=== PATIENT | female | born 1985 | race Caucasian/White ===

== ENCOUNTER 2016-10-10 03:05 | Emergency (ER) | payer BC, OTHER ==
[2016-10-10] MEDS ORDERED: TORAdol 30 mg Injection IV ONE (03:23)
[2016-10-10] MEDS ORDERED: Zofran 4 MG/2 ML VIAL IV ONE (03:23)
[2016-10-10] MEDS ORDERED: Sodium Chloride 0.9% 1000 ML 1,000 ML ONE (03:24)
[2016-10-10] MEDS ORDERED: Sodium Chloride 0.9% 1000 ML 1,000 ML IV SCH (03:30)
--- NOTE | 2016-10-10 03:31 | ERPHSYRPT ---
- History of Present Illness Time Seen by Provider: 10/10/16 03:10 Historian: patient Exam Limitations: clinical condition Patient Subjective Stated Complaint: Pt sts rt lower back pain with rt flank pain and rt chest/upper abd discomfort that woke her up from a sleep. Rates pain 6/10. Also sts nausea. Denies symptoms. Sts does not feel like prior kidney stones. Describes as sharp. Triage Nursing Assessment: Pt alert, oriented, answers questions appropriately. Ambulatory to tx room holding rt flank. Steady gait noted. ABD tender right lower quadrant. Physician History: PATIENT COMPLAINS OF SHARP PAINS BELOW RIGHT BREAST SINCE 11AM, SEVERE PAIN WHICH RADIATES TO BACK. ALSO HAS RIGHT FLANK PAIN WHICH RADIATES TO LOWER ABDOMEN. DENIE NAUSEA, EMESIS OR DIARRHEA. HAS HAD PREVIOUS CHOLECYSTECYOMY, APPENDECTOMY AND TUBAL LIGATION. Timing/Duration: today Activities at Onset: none Location: other (RIGHT SIDE OF CHEST BELOW BREAST) Chest Pain Radiation: abdomen Severity of Pain-Max: moderate Severity of Pain-Current: moderate Associated Symptoms: denies symptoms Prior Chest Pain/Cardiac Workup: no prior chest pain Nitro Today/Relief: no nitro taken today Aspirin Treatment Today: no aspirin today Allergies/Adverse Reactions: IV dye Adverse Reaction (Uncoded 10/10/16 03:10) Vomiting Home Medications: Linagliptin [Tradjenta] 5 mg PO DAILY 10/10/16 [History] Metoprolol Tartrate 25 mg PO DAILY 10/10/16 [History] Paroxetine HCl [Paxil] 20 mg PO DAILY 10/10/16 [History] Hx Influenza Vaccination/Date Given: Yes (september 2013) Hx Pneumococcal Vaccination/Date Given: No Immunizations Up to Date: Yes - Review of Systems Constitutional: No Fever, No Chills Eyes: No Symptoms Ears, Nose, & Throat: No Symptoms Respiratory: No Symptoms, No Cough, No Dyspnea Cardiac: No Chest Pain, No Edema, No Syncope Abdominal/Gastrointestinal: No Abdominal Pain, No Nausea, No Vomiting, No Diarrhea Genitourinary Symptoms: No Dysuria Musculoskeletal: No Back Pain, No Neck Pain Skin: No Rash Neurological: No Dizziness, No Focal Weakness, No Sensory Changes Psychological: No Symptoms Endocrine: No Symptoms All Other Systems: Reviewed and Negative - Past Medical History Pertinent Past Medical History: Yes Neurological History: No Pertinent History ENT History: No Pertinent History Cardiac History: No Pertinent History Respiratory History: Bronchitis Endocrine Medical History: No Pertinent History Musculoskeletal History: No Pertinent History GI Medical History: Gallbladder Disease History: No Pertinent History Psycho-Social History: Anxiety Female Reproductive Disorders: Other - Past Surgical History Past Surgical History: Yes Neuro Surgical History: No Pertinent History Cardiac: No Pertinent History Respiratory: No Pertinent History Gastrointestinal: Appendectomy, Cholecystectomy Genitourinary: No Pertinent History Musculoskeletal: No Pertinent History Female Surgical History: Other Other Surgical History: pt states abnormal cervical cells, frozen and scraped - Social History Smoking Status: Never smoker How long have you smoked: 10 yrs Exposure to second hand smoke: No Drug Use: none Patient Lives Alone: No - Female History Hx Last Menstrual Period: ablation 02/04 - Nursing Vital Signs Nursing Vital Signs: Initial Vital Signs Temperature 97.9 F 10/10/16 03:12 Pulse Rate 97 H 10/10/16 03:12 Respiratory Rate 24 10/10/16 03:12 Blood Pressure 157/99 10/10/16 03:12 O2 Sat by Pulse Oximetry 97 10/10/16 03:12 Pain Scale Pain Intensity 6 - Physical Exam General Appearance: mild distress Eye Exam: PERRL/EOMI, eyes nml inspection Ears, Nose, Throat Exam: normal ENT inspection, moist mucous membranes Neck Exam: normal inspection, non-tender, supple, full range of motion Respiratory Exam: normal breath sounds, chest tenderness (MARKED TENDERNESS RIGHT ANTEROLATERAL CHEST WALL 5TH TO 6TH ICS, NO CREPITUS) Cardiovascular Exam: regular rate/rhythm, normal heart sounds Gastrointestinal/Abdomen Exam: soft, normal bowel sounds, tenderness (RIGHT LOWER AND SUPRAPUBIC TENDERNESS) Back Exam: normal inspection, normal range of motion Extremity Exam: normal inspection Neurologic Exam: alert, oriented x 3 SpO2 Interpretation: normal SpO2: 97 Oxygen Delivery: Room Air - Course EKG Interpreted by Me: RATE, Sinus Rhythm, NORMAL AXIS - Radiology Exams Chest X-ray Interpretation: Interpreted by me, Negative, No Infiltrates - CT Exams Abdomen/Pelvis CT Interpretation: Tele-radiologist Report (NO KIDNEY STONES, POST APPENDECTOMY , THERE IS A RIGHT OVARIAN CYST 2.9CM, NO BOWEL OBSTRUCTION, FREE AIR OR FREE FLUID) Ordered Tests: Active Orders 24 hr Category Date Time Status Unloader Operator STAT Care 10/10/16 03:20 Active EKG-ER Only STAT Care 10/10/16 03:20 Active EKG-ER Only STAT Care 10/10/16 03:22 Active IV Insertion STAT Care 10/10/16 03:20 Active Oxygen-ED Only NASAL CANNULA 2 lpm Care 10/10/16 03:20 Active ABDOMEN AND PELVIS W/0 CONTRAS [CT] Stat Exams 10/10/16 04:32 Taken CHEST 2 VIEWS (PA AND LAT) Stat Exams 10/10/16 04:32 Taken CBC W DIFF Stat Lab 10/10/16 03:32 Completed CMP Stat Lab 10/10/16 03:32 Completed D-DIMER QUANTITATION Stat Lab 10/10/16 03:32 Completed PROTIME WITH INR Stat Lab 10/10/16 03:32 Completed TROPONIN Q3H Lab 10/10/16 03:32 Completed TROPONIN Q3H Lab 10/10/16 06:30 Ordered TROPONIN Q3H Lab 10/10/16 09:30 Ordered TROPONIN Q3H Lab 10/10/16 12:30 Ordered TROPONIN Q3H Lab 10/10/16 15:30 Ordered UA W/RFX UR CULTURE Stat Lab 10/10/16 03:30 Completed Medication Summary Generic Name Dose Route Start Last Admin Trade Name Freq PRN Reason Stop Dose Admin Hydromorphone HCl 1 mg 10/10/16 06:18 Hydromorphone 1 Mg/Ml Ampule IV 10/10/16 06:19 STAT ONE Sodium Chloride 1,000 mls @ 250 mls/hr 10/10/16 03:30 10/10/16 03:24 Sodium Chloride 0.9% 1000 Ml IV 11/09/16 03:29 250 mls/hr .Q4H SULEMA Administration Discontinued Medications Generic Name Dose Route Start Last Admin Trade Name Freq PRN Reason Stop Dose Admin Hydromorphone HCl 1 mg 10/10/16 04:02 10/10/16 04:04 Hydromorphone 1 Mg/Ml Ampule IV 10/10/16 04:03 1 mg STAT ONE Administration Hydromorphone HCl Confirm 10/10/16 04:04 Hydromorphone 1 Mg/Ml Ampule Administered 10/10/16 04:05 Dose 1 mg .ROUTE .STK-MED ONE Ketorolac Tromethamine 30 mg 10/10/16 03:23 10/10/16 03:41 Toradol 30 Mg Injection IV 10/10/16 03:24 30 mg STAT ONE Administration Ketorolac Tromethamine Confirm 10/10/16 03:41 Toradol 30 Mg Injection Administered 10/10/16 03:42 Dose 30 mg .ROUTE .STK-MED ONE Ondansetron HCl 4 mg 10/10/16 03:23 10/10/16 03:41 Zofran 4 Mg/2 Ml Vial IV 10/10/16 03:24 4 mg STAT ONE Administration Ondansetron HCl Confirm 10/10/16 03:41 Zofran 4 Mg/2 Ml Vial Administered 10/10/16 03:42 Dose 4 mg .ROUTE .STK-MED ONE Lab/Rad Data: Laboratory Result Diagrams 10/10/16 03:32 10/10/16 03:32 Laboratory Results 10/10/16 10/10/16 10/10/16 Range/Units 03:32 03:32 03:32 WBC (4.0-10.5) K/mm3 RBC (4.1-5.4) M/mm3 Hgb (12.0-16.0) gm/dl Hct (35-47) % MCV (78-100) fl MCH (26-32) pg MCHC (32-36) g/dl RDW (11.5-14.0) % Plt Count (150-450) K/mm3 MPV (6-9.5) fl Gran % (36.0-66.0) % Lymphocytes % (24.0-44.0) % Monocytes % (0.0-12.0) % Eosinophils % (0.00-5.0) % Basophils % (0.0-0.4) % Basophils # (0-0.4) INR 0.99 (0.8-3.0) D-Dimer 412 (0-500) ng/mL Sodium 138 (136-145) mEq/L Potassium 4.5 (3.5-5.1) mEq/L Chloride 102 (98-107) mEq/L Carbon Dioxide 25.6 (21-32) mEq/L Anion Gap 14.6 (5-15) MEQ/L BUN 12 (9-20) mg/dL Creatinine 0.84 (0.55-1.30) mg/dl Estimated GFR > 60 ML/MIN Glucose 170 H (70-110) MG/DL Calcium 9.5 (8.5-10.1) mg/dL Total Bilirubin 0.20 (0.2-1.0) mg/dL AST 14 L (15-37) U/L ALT 29 (12-78) U/L Alkaline Phosphatase 74 (46-116) U/L Troponin I < 0.017 (0.000-0.056) ng/ml Serum Total Protein 7.9 (6.4-8.2) gm/dL Albumin 3.7 (3.4-5.0) g/dL Ur Collection Type Urine Color (YELLOW) Urine Appearance (CLEAR) Urine pH (5-6) Ur Specific [place] (1.005-1.025) Urine Protein (Negative) Urine Ketones (NEGATIVE) Urine Blood (0-5) Rogelio/ul Urine Nitrite (NEGATIVE) Urine Bilirubin (NEGATIVE) Urine Urobilinogen (0-1) mg/dL Ur Leukocyte Esterase (NEGATIVE) Urine Glucose (NEGATIVE) mg/dL Specimen Received 10/10/16 10/10/16 Range/Units 03:32 03:30 WBC 16.2 H (4.0-10.5) K/mm3 RBC 5.24 (4.1-5.4) M/mm3 Hgb 14.7 (12.0-16.0) gm/dl Hct 45.5 (35-47) % MCV 86.8 (78-100) fl MCH 28.1 (26-32) pg MCHC 32.3 (32-36) g/dl RDW 13.6 (11.5-14.0) % Plt Count 426 (150-450) K/mm3 MPV 8.9 (6-9.5) fl Gran % 69.1 H (36.0-66.0) % Lymphocytes % 23.6 L (24.0-44.0) % Monocytes % 5.5 (0.0-12.0) % Eosinophils % 1.4 (0.00-5.0) % Basophils % 0.4 (0.0-0.4) % Basophils # 0.07 (0-0.4) INR (0.8-3.0) D-Dimer (0-500) ng/mL Sodium (136-145) mEq/L Potassium (3.5-5.1) mEq/L Chloride (98-107) mEq/L Carbon Dioxide (21-32) mEq/L Anion Gap (5-15) MEQ/L BUN (9-20) mg/dL Creatinine (0.55-1.30) mg/dl Estimated GFR ML/MIN Glucose (70-110) MG/DL Calcium (8.5-10.1) mg/dL Total Bilirubin (0.2-1.0) mg/dL AST (15-37) U/L ALT (12-78) U/L Alkaline Phosphatase (46-116) U/L Troponin I (0.000-0.056) ng/ml Serum Total Protein (6.4-8.2) gm/dL Albumin (3.4-5.0) g/dL Ur Collection Type CLEAN CATCH Urine Color YELLOW (YELLOW) Urine Appearance CLEAR (CLEAR) Urine pH 5.0 (5-6) Ur Specific [place] 1.020 (1.005-1.025) Urine Protein NEGATIVE (Negative) Urine Ketones NEGATIVE (NEGATIVE) Urine Blood NEGATIVE (0-5) Rogelio/ul Urine Nitrite NEGATIVE (NEGATIVE) Urine Bilirubin NEGATIVE (NEGATIVE) Urine Urobilinogen NORMAL (0-1) mg/dL Ur Leukocyte Esterase NEGATIVE (NEGATIVE) Urine Glucose NEGATIVE (NEGATIVE) mg/dL Specimen Received 10/10/16:0330 - Progress Progress: improved Progress Note: 10/10/16 06:22 PATIENT GIVEN IV NORMAL SALINE 250ML/HR, TORADOL 30MG, DILAUDID 1MG X 2 IV, MODERATE PAIN RELIEF Counseled pt/family regarding: diagnosis, need for follow-up, rad results - Departure Time of Disposition: 06:50 Departure Disposition: Home Clinical Impression: ACUTE PLEURISY, RIGHT OVARIAN CYST Condition: Stable Critical Care Time: No Referrals: JESSICA CURTIS [COURTESY STAFF] - Additional Instructions: TORADOL 10MG EVERY 6 HOURS FOR MILD TO MODERATE PAIN DISCOMFORT. NORCO 10/325 EVERY 4 HOURS FOR SEVERE PAIN. CONSULT YOUR PRIMARY CARE PHYSICIAN FOR EVALUATION OF YOUR CHEST WALL PAIN AND RIGHT OVARIN CYST. Prescriptions: Hydrocodone/APAP 10/325 mg [[place] 10/325 MG Tablet] 1 tab PO Q4H PRN PRN # 15 tablet PRN Reason: Pain Ketorolac Tromethamine [Toradol] 10 mg PO Q6HPRN PRN #20 tablet PRN Reason: Pain
[2016-10-10 03:40] LABS: BASOPHIL % 0.4 % (0.0-0.4); Eosinophil % 1.4 % (0.00-5.0); Granulocytes % 69.1 % (36.0-66.0); Lymphocytes % 23.6 % (24.0-44.0); Mean Cell Volume 86.8 fl (78-100); Mean Corpuscular Hemoglobin 28.1 pg (26-32); Mean Platelet Volume 8.9 fl (6-9.5); Monocytes % 5.5 % (0.0-12.0); Platelet Count 426 K/mm3 (150-450); Red Blood Count 5.24 M/mm3 (4.1-5.4); Red Cell Distribution Width 13.6 % (11.5-14.0); White Blood Count 16.2 K/mm3 (4.0-10.5)
[2016-10-10 03:40] LABS: Collection Type CLEAN CATCH
[2016-10-10 03:41] LABS: ADD URINE CULTURE? NO (NO); Bilirubin NEGATIVE (NEGATIVE); Blood NEGATIVE Ery/ul (0-5); COMPLETE URINE MICROSCOPIC? NO; Glucose NEGATIVE (NEGATIVE); Leukocyte Esterase NEGATIVE (NEGATIVE)
[2016-10-10] MEDS ORDERED: TORAdol 30 mg Injection ONE (03:41)
[2016-10-10] MEDS ORDERED: Zofran 4 MG/2 ML VIAL ONE (03:41)
[2016-10-10 04:00] LABS: INR 0.99 (0.8-3.0); PROTIME 11.2 SECONDS (9.95-12.35)
[2016-10-10] MEDS ORDERED: Hydromorphone 1 mg/ml Ampule IV ONE ×2 (04:02→06:18)
[2016-10-10] MEDS ORDERED: Hydromorphone 1 mg/ml Ampule ONE ×2 (04:04→06:22)
[2016-10-10 04:08] LABS: ALBUMIN 3.7 g/dL (3.4-5.0); ALKALINE PHOSPHATASE 74 U/L (46-116); ANION GAP 14.6 MEQ/L (5-15); BLOOD UREA NITROGEN 12 mg/dL (9-20); CHLORIDE 102 mEq/L (98-107); Carbon Dioxide 25.6 mEq/L (21-32); Glucose 170 MG/DL (70-110); Potassium 4.5 mEq/L (3.5-5.1); SGOT/AST 14 U/L (15-37); SGPT/ALT 29 U/L (12-78); SODIUM 138 mEq/L (136-145); Total Protein 7.9 gm/dL (6.4-8.2)
[2016-10-10 06:59] VITALS: BP 132/85; PULSE 79; O2SAT 95
--- NOTE | 2016-10-10 08:44 | XRAY ---
Indication: Right-sided chest pain. Comparison: December 27, 2007. PA/lateral chest again demonstrates normal heart and lungs. Bony thorax intact with old left 6th rib fracture.
--- NOTE | 2016-10-10 08:48 | XRAY ---
Indication: Right lower back/flank pain. Multiple contiguous axial images obtained through the abdomen and pelvis without contrast as ordered. Comparison: None. Minimal fibrosis/scarring the left lung base. Right lung bases clear. Heart is not enlarged. Noncontrasted stomach and bowel loops appear nonobstructed. There is mild diffuse scattered colonic fecal debris. Previous appendectomy and cholecystectomy. There is a 3.3 cm right ovary cyst, 2 cm right lower renal cyst, and 1 cm left uterine fibroid. No free fluid/air. Remaining liver, pancreas, spleen, adrenal glands, kidneys, ureters, bladder, uterus, and aorta appear unremarkable for noncontrast exam. Osseous structures intact. Impression: 1. No acute intra-abdominal/pelvic abnormalities on this noncontrast exam. 2. Fecal stasis without obstruction. 3. Incidental right ovary cyst, right renal cyst, and uterine fibroid. Comment: Preliminary interpretation was made by C. No critical discrepancy. CTDI 23.68
== END 2016-10-10 07:00 | disposition home or self-care (01) ==
LOC: ED 03:05
DX: R09.1 Pleurisy (principal); N83.201 Unspecified ovarian cyst, right side
CPT/HCPCS: 36000; 36415; 71020; 74176; 80053; 81002; 84484; 85025; 85379; 85610; 93005; 93041; 96360; 96361; 96374; 96375; 99284; 99285; J1170; J1885; J2405

== ENCOUNTER 2018-06-21 07:26 | Emergency (ER) | payer OTHER ==
--- NOTE | 2018-06-21 07:59 | ERPHSYRPT ---
- History of Present Illness Time Seen by Provider: 06/21/18 07:45 Source: patient Exam Limitations: no limitations Patient Subjective Stated Complaint: pt here for cough for 3 days, no fever, she states she has had bronchitis 3 times this year, cough productive yellow, Triage Nursing Assessment: pt arrived per wc, resp easy, dry cough, skin w/d/p. chest clear, no edema Physician History: 32-year-old white female with history of diabetes type 2, bronchitis Patient arrives with complaint of cough short of breath sore throat symptoms for 3 days. No vomiting no diarrhea. Past medical history includes diabetes type 2, bronchitis, gallbladder problems , anxiety. Past surgical history includes appendectomy cholecystectomy, tubal ligation, uterine ablation Social history positive tobacco use Timing/Duration: day(s) (3 days) Severity: moderate Modifying Factors: Improves With: nothing. Worsens With: cold therapy, medication, movement, rest, acetaminophen, ibuprofen Associated Symptoms: shortness of breath, cough, other (sore throat), No nausea , No vomiting, No abdominal pain, No heartburn, No diaphoresis, No chills, No chest pain, No fever, No headaches, No loss of appetite, No malaise, No rash, No syncope, No seizure, No weakness Allergies/Adverse Reactions: IV dye Adverse Reaction (Uncoded 06/21/18 07:43) Vomiting Home Medications: Dulaglutide [Trulicity] 0.5 ml WEEKLY 06/21/18 [History] Hx Tetanus, Diphtheria Vaccination/Date Given: Yes Hx Influenza Vaccination/Date Given: Yes Hx Pneumococcal Vaccination/Date Given: No Immunizations Up to Date: Yes - Review of Systems Constitutional: No Fever, No Chills Eyes: No Symptoms Ears, Nose, & Throat: Throat Pain, No Ear Pain, No Ear Discharge, No Hearing Changes, No Tinnitus, No Nose Pain, No Nose Congestion, No Nose Discharge, No Sinus Drainage, No Epistaxis, No Mouth Pain, No Mouth Swelling, No Loose Teeth, No Throat Swelling, No Hoarse, No Painful Swallowing, No Snoring, No Stridor Respiratory: Cough, Dyspnea, Wheezing, No Cyanosis, No Dyspnea on Exertion (AC) , No Stridor Cardiac: No Chest Pain, No Edema, No Syncope Abdominal/Gastrointestinal: No Abdominal Pain, No Nausea, No Vomiting, No Diarrhea Genitourinary Symptoms: No Dysuria Musculoskeletal: No Back Pain, No Neck Pain Skin: No Rash Neurological: No Dizziness, No Focal Weakness, No Sensory Changes Psychological: No Symptoms Endocrine: No Symptoms All Other Systems: Reviewed and Negative - Past Medical History Pertinent Past Medical History: Yes Neurological History: No Pertinent History ENT History: No Pertinent History Cardiac History: No Pertinent History Respiratory History: Bronchitis Endocrine Medical History: Diabetes Type II Musculoskeletal History: No Pertinent History GI Medical History: Gallbladder Disease History: No Pertinent History Psycho-Social History: Anxiety Female Reproductive Disorders: Other - Past Surgical History Past Surgical History: Yes Neuro Surgical History: No Pertinent History Cardiac: No Pertinent History Respiratory: No Pertinent History Gastrointestinal: Appendectomy, Cholecystectomy Genitourinary: No Pertinent History Musculoskeletal: No Pertinent History Female Surgical History: Tubal Ligation Other Surgical History: ablasion - Social History Smoking Status: Current every day smoker How long have you smoked: 10 yrs Exposure to second hand smoke: Yes Drug Use: none Patient Lives Alone: No - Female History Hx Last Menstrual Period: none Hx Now: No - Nursing Vital Signs Nursing Vital Signs: Initial Vital Signs Temperature 97.8 F 06/21/18 07:39 Pulse Rate 118 H 06/21/18 07:39 Respiratory Rate 20 06/21/18 07:39 Blood Pressure 125/83 06/21/18 07:39 O2 Sat by Pulse Oximetry 95 06/21/18 07:39 Pain Scale Pain Intensity 3 - Physical Exam General Appearance: mild distress, alert Eye Exam: PERRL/EOMI, eyes nml inspection Ears, Nose, Throat Exam: normal ENT inspection, TMs normal, moist mucous membranes, pharyngeal erythema Neck Exam: normal inspection, non-tender, supple, full range of motion Respiratory Exam: airway intact, rhonchi (few scattered rhonchi), wheezing (few scattered wheezes), No chest tenderness, No respiratory distress, No diminished breath sounds, No accessory muscle use, No prolonged expirations, No crackles/ rales, No pleural rub Cardiovascular Exam: regular rate/rhythm, normal heart sounds, normal peripheral pulses, capillary refill <2 sec Gastrointestinal/Abdomen Exam: soft, normal bowel sounds, No tenderness, No mass Back Exam: normal inspection, normal range of motion, No CVA tenderness, No vertebral tenderness Extremity Exam: normal inspection, normal range of motion, pelvis stable Neurologic Exam: alert, oriented x 3, cooperative, social media assistant II-XII nml as tested, normal mood/affect, nml cerebellar function, nml station & gait, sensation nml, No motor deficits Skin Exam: normal color, warm, dry, No rash Lymphatic Exam: No adenopathy SpO2 Interpretation: normal (95%) SpO2: 95 O2 Delivery: Room Air - Course Nursing assessment & vital signs reviewed: Yes - Radiology Exams Chest X-ray Interpretation: Interpreted by me (no acute disease process noted) Ordered Tests: Active Orders 24 hr Category Date Time Status Accucheck STAT Care 06/21/18 07:55 Active CHEST 1 VIEW (PORTABLE) Stat Exams 06/21/18 07:55 Taken Peak Expiratory Flow Rate ONCE RT 06/21/18 09:05 Active Respiratory Nebulizer STAT RT 06/21/18 07:55 Completed Respiratory Therapy Assessment DAILY RT 06/21/18 09:05 Active Medication Summary Generic Name Dose Route Start Last Admin Trade Name Freq PRN Reason Stop Dose Admin Methylprednisolone Sodium Succinate 125 mg 06/21/18 09:06 Solu-Medrol 125 Mg IV 06/21/18 09:07 STAT ONE Discontinued Medications Generic Name Dose Route Start Last Admin Trade Name Freq PRN Reason Stop Dose Admin Albuterol/Ipratropium 3 ml 06/21/18 07:55 Duoneb 0.5-3 Mg/3 Ml Neb IH 06/21/18 07:56 STAT ONE Albuterol/Ipratropium Confirm 06/21/18 08:05 Duoneb 0.5-3 Mg/3 Ml Neb Administered 06/21/18 08:06 Dose 3 ml IH .STK-MED ONE - Progress Progress: improved Progress Note: 06/21/18 09:07 Patient feeling better after DuoNeb treatment. Will give patient Solu-Medrol 125 mg IM. Plan home. Discontinue smoking. Albuterol inhaler 2 puffs every 4-6 hours as needed. Zithromax Z-ELMER as directed. - Departure Departure Disposition: Home Clinical Impression: Bronchitis with bronchospasm Condition: Fair Critical Care Time: No Referrals: MAYDA AGARWAL MD [Primary Care Provider] - Additional Instructions: Return home. Plenty of fluids. Tapering dose of prednisone as directed. Zithromax as directed. Tapering dose of prednisone as directed. Stop smoking. Follow-up with your family doctor if symptoms are worse, no better in 48 hours or persist longer than one week. Return for acute distress or for severe symptoms. Prescriptions: Albuterol Common Canister [Proventil Common Canister] 2 puff IH Q4-6HPRN PRN #1 canister PRN Reason: shortness of breath, wheezing Azithromycin 250 mg [Zithromax 250 MG TABLET] 0 mg PO ZPACK #6 tablet
[2018-06-21] MEDS: DUONEB 0.5-3 MG/3 ml Neb IH ONE (08:05)
[2018-06-21] MEDS ORDERED: DUONEB 0.5-3 MG/3 ml Neb IH ONE (08:05)
[2018-06-21] MEDS: solu-MEDROL 125 MG IV ONE (09:14)
[2018-06-21] MEDS ORDERED: solu-MEDROL 125 MG ONE (09:14)
[2018-06-21 09:20] VITALS: BP 155/94; PULSE 111; O2SAT 94
--- NOTE | 2018-06-21 09:20 | XRAY ---
Indication: Cough and short of breath. Comparison: March 12, 2018. Portable chest again demonstrates normal heart and lungs. Bony thorax intact again with old left rib fracture. No new/acute findings.
== END 2018-06-21 09:52 | disposition home or self-care (01) ==
LOC: ED 07:26
DX: J40 Bronchitis, not specified as acute or chronic (principal); J98.01 Acute bronchospasm; E11.9 Type 2 diabetes mellitus without complications
CPT/HCPCS: 71045; 82962; 94150; 94640; 96372; 99284; J2930; A9270-GY

== ENCOUNTER 2018-08-09 09:32 | Emergency (ER) | payer OTHER ==
[2018-08-09] MEDS ORDERED: TORAdol 30 mg Injection IV ONE (10:07)
[2018-08-09] MEDS ORDERED: Sodium Chloride 0.9% 1000 ML 1,000 ML IV STA (10:07)
[2018-08-09] MEDS ORDERED: Zofran 4 MG/2 ML VIAL IV ONE (10:07)
--- NOTE | 2018-08-09 10:12 | ERPHSYRPT ---
- History of Present Illness Time Seen by Provider: 08/09/18 10:05 Historian: patient Exam Limitations: no limitations Patient Subjective Stated Complaint: sudden onset lower abdominal pain. nausea with no vomiting. had similar pain when she ruptured a cyst. states pain is in lower belly to her back Triage Nursing Assessment: alert and uncomfortable . sudden onset of lower abdominal pain going into back while at work. nausea with no vomiting. denies urinary symptoms. intermittent pain. Physician History: Pt started c/o lower abdominal, pelvic pain 20 minutes ago, radiates to her both flanks. She denies urinary complaints, no vaginal bleeding ( she had uterine ablation), no vomiting, diarrhea, but nauseated. She also denies chills , fever, cough, congestion, other complaints. Timing/Duration: hour(s) (0.4) Activities at Onset: none Quality: cramping, sharpness Abdominal Pain Onset Location: RLQ, LLQ, suprapubic Pain Radiation: flank (both) Severity of Pain-Max: severe Severity of Pain-Current: severe Modifying Factors: Improves With: nothing Associated Symptoms: nausea Previous symptoms: no prior history Allergies/Adverse Reactions: IV dye Adverse Reaction (Uncoded 08/09/18 10:29) Vomiting Home Medications: Dulaglutide [Trulicity] 0.5 ml WEEKLY 06/21/18 [History] Hx Tetanus, Diphtheria Vaccination/Date Given: Yes Hx Influenza Vaccination/Date Given: Yes Hx Pneumococcal Vaccination/Date Given: No - Review of Systems Ears, Nose, & Throat: No Symptoms Respiratory: No Symptoms Cardiac: No Symptoms Abdominal/Gastrointestinal: Abdominal Pain, Nausea, No Vomiting, No Diarrhea Genitourinary Symptoms: No Symptoms Neurological: No Symptoms All Other Systems: Reviewed and Negative - Past Medical History Pertinent Past Medical History: Yes Neurological History: No Pertinent History ENT History: No Pertinent History Cardiac History: No Pertinent History Respiratory History: Bronchitis Endocrine Medical History: Diabetes Type II Musculoskeletal History: No Pertinent History GI Medical History: Gallbladder Disease History: No Pertinent History Psycho-Social History: Anxiety Female Reproductive Disorders: Other - Past Surgical History Past Surgical History: Yes Neuro Surgical History: No Pertinent History Cardiac: No Pertinent History Respiratory: No Pertinent History Gastrointestinal: Appendectomy, Cholecystectomy Genitourinary: No Pertinent History Musculoskeletal: No Pertinent History Female Surgical History: Tubal Ligation Other Surgical History: ablasion - Social History Smoking Status: Current every day smoker How long have you smoked: 10 yrs Exposure to second hand smoke: No Drug Use: none Patient Lives Alone: No - Female History Hx Now: No - Nursing Vital Signs Nursing Vital Signs: Initial Vital Signs Temperature 98.3 F 08/09/18 09:58 Pulse Rate 96 H 08/09/18 09:58 Respiratory Rate 18 08/09/18 09:58 Blood Pressure 110/74 08/09/18 09:58 O2 Sat by Pulse Oximetry 98 08/09/18 09:58 Pain Scale Pain Intensity 7 - Physical Exam General Appearance: no apparent distress Eye Exam: eyes nml inspection Ears, Nose, Throat Exam: normal ENT inspection Neck Exam: normal inspection Respiratory Exam: normal breath sounds Cardiovascular Exam: regular rate/rhythm, normal heart sounds, No murmur Gastrointestinal/Abdomen Exam: soft, normal bowel sounds, tenderness (diffuse, bilateral lower abdomen, pelvis), No distention, No mass, No guarding, No ecchymosis, No rebound, No hernia, No organomegaly Back Exam: normal inspection, CVA tenderness (bilateral, mild), No vertebral tenderness Extremity Exam: normal inspection, No calf tenderness, No pedal edema Neurologic Exam: alert, oriented x 3, cooperative, normal mood/affect Skin Exam: normal color, warm, dry, No rash, No cyanosis Lymphatic Exam: No adenopathy SpO2 Interpretation: normal SpO2: 98 O2 Delivery: Room Air - Course Nursing assessment & vital signs reviewed: Yes - CT Exams Abdomen/Pelvis CT Interpretation: Negative, Tele-radiologist Report Ordered Tests: Active Orders 24 hr Category Date Time Status IV Insertion STAT Care 08/09/18 10:07 Active ABDOMEN AND PELVIS W/0 CONTRAS [CT] Stat Exams 08/09/18 10:07 Completed CBC W DIFF Stat Lab 08/09/18 10:00 Completed CMP Stat Lab 08/09/18 10:00 Completed LIPASE Stat Lab 08/09/18 10:00 Completed UA W/RFX UR CULTURE Stat Lab 08/09/18 10:07 Completed Urine Triage Profile Stat Lab 08/09/18 10:07 Completed Medication Summary Discontinued Medications Generic Name Dose Route Start Last Admin Trade Name Freq PRN Reason Stop Dose Admin Fentanyl Citrate 75 mcg 08/09/18 12:06 Sublimaze 100 Mcg/2 Ml IV 08/09/18 12:07 STAT ONE Sodium Chloride 1,000 mls @ 999 mls/hr 08/09/18 10:07 08/09/18 10:33 Sodium Chloride 0.9% 1000 Ml IV 08/09/18 11:07 999 mls/hr .Q1H1M STA Administration Sodium Chloride Confirm 08/09/18 10:23 Sodium Chloride 0.9% 1000 Ml Administered 08/09/18 10:24 Dose 1,000 mls @ ud .ROUTE .STK-MED ONE Ketorolac Tromethamine 30 mg 08/09/18 10:07 08/09/18 10:32 Toradol 30 Mg Injection IV 08/09/18 10:08 30 mg STAT ONE Administration Ketorolac Tromethamine Confirm 08/09/18 10:23 Toradol 30 Mg Injection Administered 08/09/18 10:24 Dose 30 mg .ROUTE .STK-MED ONE Ondansetron HCl 4 mg 08/09/18 10:07 08/09/18 10:32 Zofran 4 Mg/2 Ml Vial IV 08/09/18 10:08 4 mg STAT ONE Administration Ondansetron HCl Confirm 08/09/18 10:23 Zofran 4 Mg/2 Ml Vial Administered 08/09/18 10:24 Dose 4 mg .ROUTE .STK-MED ONE Lab/Rad Data: Laboratory Result Diagrams 08/09/18 10:00 08/09/18 10:00 Laboratory Results 08/09/18 08/09/18 08/09/18 Range/Units 10:07 10:07 10:00 WBC (4.0-10.5) K/mm3 RBC (4.1-5.4) M/mm3 Hgb (12.0-16.0) gm/dl Hct (35-47) % MCV (78-100) fl MCH (26-32) pg MCHC (32-36) g/dl RDW (11.5-14.0) % Plt Count (150-450) K/mm3 MPV (6-9.5) fl Gran % (36.0-66.0) % Eos # (Auto) (0-0.5) Absolute Lymphs (auto) (1.0-4.6) Absolute Monos (auto) (0.0-1.3) Lymphocytes % (24.0-44.0) % Monocytes % (0.0-12.0) % Eosinophils % (0.00-5.0) % Basophils % (0.0-0.4) % Absolute Granulocytes (1.4-6.9) Basophils # (0-0.4) Sodium 139 (137-145) mmol/L Potassium 4.3 (3.5-5.1) mmol/L Chloride 105 (98-107) mmol/L Carbon Dioxide 23 (22-30) mmol/L Anion Gap 15.0 (5-15) MEQ/L BUN 8 (7-17) mg/dL Creatinine 0.68 (0.52-1.04) mg/dL Estimated GFR > 60.0 ML/MIN Glucose 87 (74-106) mg/dL Calcium 9.7 (8.4-10.2) mg/dL Total Bilirubin 0.50 (0.2-1.3) mg/dL AST 16 (14-36) U/L ALT 14 (0-35) U/L Alkaline Phosphatase 61 (38-126) U/L Serum Total Protein 7.2 (6.3-8.2) g/dL Albumin 4.1 (3.5-5.0) g/dL Lipase 190 (23-300) U/L Urine Color YELLOW (YELLOW) Urine Appearance SLIGHTLY CLOUDY (CLEAR) Urine pH 5.0 (5-6) Ur Specific Hill 1.018 (1.005-1.025) Urine Protein NEGATIVE (Negative) Urine Ketones NEGATIVE (NEGATIVE) Urine Blood NEGATIVE (0-5) Rogelio/ul Urine Nitrite NEGATIVE (NEGATIVE) Urine Bilirubin NEGATIVE (NEGATIVE) Urine Urobilinogen NEGATIVE (0-1) mg/dL Ur Leukocyte Esterase TRACE (NEGATIVE) Urine WBC (Auto) 0-2 (0-5) /HPF Urine RBC (Auto) NONE (0-2) /HPF U Epithel Cells (Auto) RARE (FEW) /HPF Urine Bacteria (Auto) RARE (NEGATIVE) /HPF Urine Mucus (Auto) SLIGHT (NEGATIVE) /HPF Urine Culture Reflexed NO (NO) Urine Glucose NEGATIVE (NEGATIVE) mg/dL Urine Opiates Level NEGATIVE (NEGATIVE) Ur Methadone NEGATIVE (NEGATIVE) Urine Barbiturates NEGATIVE (NEGATIVE) Ur Phencyclidine (PCP) NEGATIVE (NEGATIVE) Urine Amphetamine NEGATIVE (NEGATIVE) U Benzodiazepine Level NEGATIVE (NEGATIVE) Urine Cocaine NEGATIVE (NEGATIVE) Urine Marijuana (THC) POSITIVE (NEGATIVE) 08/09/18 Range/Units 10:00 WBC 11.6 H (4.0-10.5) K/mm3 RBC 5.14 (4.1-5.4) M/mm3 Hgb 15.0 (12.0-16.0) gm/dl Hct 45.7 (35-47) % MCV 88.9 (78-100) fl MCH 29.2 (26-32) pg MCHC 32.8 (32-36) g/dl RDW 13.7 (11.5-14.0) % Plt Count 378 (150-450) K/mm3 MPV 8.8 (6-9.5) fl Gran % 70.2 H (36.0-66.0) % Eos # (Auto) 0.17 (0-0.5) Absolute Lymphs (auto) 2.47 (1.0-4.6) Absolute Monos (auto) 0.77 (0.0-1.3) Lymphocytes % 21.3 L (24.0-44.0) % Monocytes % 6.6 (0.0-12.0) % Eosinophils % 1.5 (0.00-5.0) % Basophils % 0.4 (0.0-0.4) % Absolute Granulocytes 8.16 H (1.4-6.9) Basophils # 0.05 (0-0.4) Sodium (137-145) mmol/L Potassium (3.5-5.1) mmol/L Chloride (98-107) mmol/L Carbon Dioxide (22-30) mmol/L Anion Gap (5-15) MEQ/L BUN (7-17) mg/dL Creatinine (0.52-1.04) mg/dL Estimated GFR ML/MIN Glucose (74-106) mg/dL Calcium (8.4-10.2) mg/dL Total Bilirubin (0.2-1.3) mg/dL AST (14-36) U/L ALT (0-35) U/L Alkaline Phosphatase (38-126) U/L Serum Total Protein (6.3-8.2) g/dL Albumin (3.5-5.0) g/dL Lipase (23-300) U/L Urine Color (YELLOW) Urine Appearance (CLEAR) Urine pH (5-6) Ur Specific Hill (1.005-1.025) Urine Protein (Negative) Urine Ketones (NEGATIVE) Urine Blood (0-5) Rogelio/ul Urine Nitrite (NEGATIVE) Urine Bilirubin (NEGATIVE) Urine Urobilinogen (0-1) mg/dL Ur Leukocyte Esterase (NEGATIVE) Urine WBC (Auto) (0-5) /HPF Urine RBC (Auto) (0-2) /HPF U Epithel Cells (Auto) (FEW) /HPF Urine Bacteria (Auto) (NEGATIVE) /HPF Urine Mucus (Auto) (NEGATIVE) /HPF Urine Culture Reflexed (NO) Urine Glucose (NEGATIVE) mg/dL Urine Opiates Level (NEGATIVE) Ur Methadone (NEGATIVE) Urine Barbiturates (NEGATIVE) Ur Phencyclidine (PCP) (NEGATIVE) Urine Amphetamine (NEGATIVE) U Benzodiazepine Level (NEGATIVE) Urine Cocaine (NEGATIVE) Urine Marijuana (THC) (NEGATIVE) - Progress Progress: improved Progress Note: 08/09/18 12:36 Pt states, improved after Fentanyl, nausea resolved, no fever, she has been stable, will discharge her on PO Ultram as needed to rest x 2-3 days, drink plenty of fluids and follow up with her physician in 1 week. Counseled pt/family regarding: lab results, diagnosis, need for follow-up, rad results - Departure Departure Disposition: Home Clinical Impression: Abdominal pain Qualifiers: Abdominal location: left lower quadrant Qualified Code(s): R10.32 - Left lower quadrant pain Condition: Stable Critical Care Time: No Referrals: MAYDA AGARWAL MD [Primary Care Provider] - Instructions: Acute Pelvic Pain (DC), Endometriosis (DC) Additional Instructions: Rest x 2-3 days, drink plenty of fluids, and follow up with your physician or [facility] in 1 week, return if severe pain, bleeding, vomiting, fever> 102 F! Prescriptions: Tramadol HCl 50 mg [Ultram 50 mg] 50 mg PO Q6H PRN #20 tablet PRN Reason: Pain
[2018-08-09] MEDS ORDERED: TORAdol 30 mg Injection ONE (10:23)
[2018-08-09] MEDS ORDERED: Zofran 4 MG/2 ML VIAL ONE (10:23)
[2018-08-09] MEDS ORDERED: Sodium Chloride 0.9% 1000 ML 1,000 ML ONE (10:23)
[2018-08-09 10:32] LABS: Appearance SLIGHTLY CLOUDY (CLEAR); Bacteria RARE /HPF (NEGATIVE); Bilirubin NEGATIVE (NEGATIVE); Blood NEGATIVE Ery/ul (0-5); Epithelial Cells RARE /HPF (FEW); Glucose NEGATIVE (NEGATIVE); Ketones NEGATIVE (NEGATIVE); Leukocyte Esterase TRACE (NEGATIVE); Mucus SLIGHT /HPF (NEGATIVE); Nitrite NEGATIVE (NEGATIVE); Protein,Urine Dip NEGATIVE (Negative); Specific Gravity 1.018 (1.005-1.025); Urobilinogen NEGATIVE mg/dL (0-1); WBC 0-2 /HPF (0-5)
[2018-08-09 10:33] LABS: BASOPHIL % 0.4 % (0.0-0.4); Basophil (Absolute #) 0.05 (0-0.4); Eosinophil % 1.5 % (0.00-5.0); Eosinophil (Absolute #) 0.17 (0-0.5); Granulocyte Absolute (ANC) 8.16 (1.4-6.9); Granulocytes % 70.2 % (36.0-66.0); Hematocrit 45.7 % (35-47); Lymphocyte (Absolute #) 2.47 (1.0-4.6); Lymphocytes % 21.3 % (24.0-44.0); Mean Cell Volume 88.9 fl (78-100); Mean Corpuscular Hemoglobin 29.2 pg (26-32); Mean Corpuscular Hgb Concent. 32.8 g/dl (32-36); Mean Platelet Volume 8.8 fl (6-9.5); Monocytes % 6.6 % (0.0-12.0); Platelet Count 378 K/mm3 (150-450); Red Blood Count 5.14 M/mm3 (4.1-5.4); Red Cell Distribution Width 13.7 % (11.5-14.0); White Blood Count 11.6 K/mm3 (4.0-10.5)
[2018-08-09 10:54] VITALS: PULSE 89
--- NOTE | 2018-08-09 11:14 | XRAY ---
Indication: Pelvic pain, right greater than left. Multiple contiguous axial images obtained through the abdomen and pelvis without contrast as ordered. Comparison: October 10, 2016. Lung bases demonstrates minimal fibrosis/scarring. No infiltrate or effusion. Heart is not enlarged. Stomach is mildly distended with food/fluid. Noncontrasted stomach and bowel loops appear nonobstructed. Again appendectomy and cholecystectomy. Uterus demonstrates stable small fundal fibroid and mid uterine punctate calcification. Also stable small right mid renal cortical cyst. No free fluid/air. Remaining liver, pancreas, spleen, adrenal glands, kidneys, ureters, bladder, and aorta appear unremarkable for noncontrast exam. Osseous structures intact again with minimal spinal degenerative changes. No ventral or inguinal hernias. Impression: 1. Stable uterine fibroid and right renal cyst. 2. No new or acute intra-abdominal/pelvic abnormalities on this noncontrast exam. CT DI 23.68
[2018-08-09 11:19] LABS: ALBUMIN 4.1 g/dL (3.5-5.0); ALKALINE PHOSPHATASE 61 U/L (38-126); BLOOD UREA NITROGEN 8 mg/dL (7-17); CHLORIDE 105 mmol/L (98-107); Calcium 9.7 mg/dL (8.4-10.2); Carbon Dioxide 23 mmol/L (22-30); Creatinine 1 0.68 mg/dL (0.52-1.04); Glucose 87 mg/dL (74-106); LIPASE 190 U/L (23-300); Potassium 4.3 mmol/L (3.5-5.1); SGOT/AST 16 U/L (14-36); SGPT/ALT 14 U/L (0-35); SODIUM 139 mmol/L (137-145); Total Protein 7.2 g/dL (6.3-8.2)
[2018-08-09 11:28] LABS: Amphetamine,Urine NEGATIVE (NEGATIVE); Barbiturate,Urine NEGATIVE (NEGATIVE); Benzodiazepine,Urine NEGATIVE (NEGATIVE); Cocaine,Urine NEGATIVE (NEGATIVE); Methadone,Urine NEGATIVE (NEGATIVE); Opiate,Urine NEGATIVE (NEGATIVE); PCP,Urine NEGATIVE (NEGATIVE); THC,Urine POSITIVE (NEGATIVE)
[2018-08-09] MEDS ORDERED: SUBLIMAZE 100 MCG/2 ML IV ONE (12:06)
[2018-08-09 12:45] VITALS: O2SAT 98
[2018-08-09] MEDS ORDERED: SUBLIMAZE 100 MCG/2 ML ONE (12:54)
[2018-08-09 14:07] VITALS: BP 122/80
== END 2018-08-09 14:15 | disposition home or self-care (01) ==
LOC: ED 09:32
DX: R10.32 Left lower quadrant pain (principal)
CPT/HCPCS: 36000; 36415; 74176; 80053; 80307; 81001; 83690; 85025; 96360; 96374; 96375; 99284; J1885; J2405; J3010

== ENCOUNTER 2020-09-16 16:57 | Day surgery (SDC) | payer MEDICAID ==
[2020-09-16] MEDS ORDERED: Depo-Medrol 40 MG/ML IM ONE (16:58)
[2020-09-16] MEDS ORDERED: Xylocaine 1% Vial 30 ML PF IJ ONE (16:58)
[2020-09-16] MEDS ORDERED: BUPIVACAINE 0.5% VIAL IJ ONE (16:58)
--- NOTE | 2020-09-16 20:58 | XRAY ---
Indication: Right SI joint injection. Intraoperative fluoroscopy provided for 9 seconds. Single lateral digital spot image submitted for interpretation demonstrates posterior needle tip projecting mid sacrum. Correlate with intraoperative findings/report.
--- NOTE | 2020-09-17 08:44 | XRAY ---
9 seconds of fluoroscopy was used in surgery for a right SI joint injection.
== END 2020-09-16 18:55 | disposition home or self-care (01) ==
LOC: SDC-PAIN 16:57
PROVIDERS: ATTEND Psychiatry & Neurology Pain Medicine
DX: M46.1 Sacroiliitis, not elsewhere classified (principal); M53.3 Sacrococcygeal disorders, not elsewhere classified; Z79.899 Other long term (current) drug therapy
CPT/HCPCS: 27096; 72020; 77002; 84703; J1030; J2001; G0260